=== PATIENT | female | born 1980 | race Caucasian/White ===

== ENCOUNTER 2019-01-20 14:37 | Inpatient (IN) | payer OTHER ==
[~2019-01-20] VITALS: Ht 165.1 cm; Wt 103.0 kg
[2019-01-20] MEDS ORDERED: morphine 4 MG/ML VIAL IV STA (15:06)
[2019-01-20] MEDS ORDERED: SOD CHLORIDE 0.9% 1,000 ML IV STA (15:06)
[2019-01-20] MEDS ORDERED: ONDANSETRON 4 MG INJ IV STA (15:06)
[2019-01-20] MEDS ORDERED: LIDOCAINE 1% (MPF) 5 ML VIAL SC ONE (16:30)
[2019-01-20] MEDS ORDERED: HYDROmorphONE 2 MG/ML SYG IV STA (17:10)
[2019-01-20] MEDS ORDERED: DIPHENHYDRAMINE 50 MG INJ IV ONE (17:30)
[2019-01-20] MEDS ORDERED: METHYLPREDNISOLONE 125 MG INJ IV ONE (18:00)
[2019-01-20] MEDS ORDERED: ONDANSETRON 4 MG INJ IV PRN ×2 (18:30→19:00)
[2019-01-20] MEDS ORDERED: ACETAMINOPHEN 325 MG TAB PO PRN ×2 (18:30→19:00)
--- NOTE | 2019-01-20 18:32 | ERD ---
ER Documentation Chief Complaint Chief Complaint AP WITH HX OF ULCERATIVE COLITIS & REPORTS OF BLOOD IN STOOL TODAY HPI 38-year-old female with a history of ulcerative colitis status post colostomies in the past and colostomy takedown presenting with severe abdominal pain, 10 out of 10, pressure-like and cramping, constant, nonradiating. She has had associated diarrhea for 1 week which is now bloody. 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 She denies any fevers or chills. No nausea or vomiting. No dysuria or hematuria. She is on mesalamine at home ROS All systems reviewed and are negative except as per history of present illness. Allergies Allergies: Coded Allergies: No Known Allergy (Unverified , 01/20/19) PMhx/Soc History of Surgery: Yes (COLOSTOMY X2, , TUBAL LIGATION, LAP MURRAY) Hx Miscellaneous Medical Probl: Yes (BLEEDING ULCER, ULCERATIVE COLITIS) Hx Alcohol Use: Yes Hx Substance Use: Yes Hx Tobacco Use: No Smoking Status: Never smoker FmHx Family History: No diabetes Physical Exam Vitals Vital Signs Date Temp Pulse Resp B/P (MAP) Pulse Ox O2 O2 Flow FiO2 Time Delivery Rate 01/20/19 73 18 115/64 99 Room Air 18:00 (81) 01/20/19 98.3 98 18 160/71 100 14:42 (100) Physical Exam Const: No acute distress Head: Atraumatic Eyes: Normal Conjunctiva ENT: Normal External Ears, Nose and Mouth. Neck: Full range of motion. No meningismus. Resp: Clear to auscultation bilaterally Cardio: Regular rate and rhythm, no murmurs Abd: Soft, moderately tender in the left upper and lower abdomen with no rebound or guarding. Non distended. Hyperactive bowel sounds Skin: No pallor. No petechiae or rashes Back: No midline or flank tenderness Ext: No cyanosis, or edema Neur: Awake and alert Psych: Normal Mood and Affect Result Diagram: 01/20/19 1634 01/20/19 1634 Results 24 hrs Laboratory Tests Test 01/20/19 15:06 01/20/19 16:34 Urine Color YELLOW Urine Clarity CLOUDY Urine pH 6.0 Urine Specific [place] 1.012 Urine Ketones NEGATIVE mg/dL Urine Nitrite NEGATIVE mg/dL Urine Bilirubin NEGATIVE mg/dL Urine Urobilinogen NEGATIVE mg/dL Urine Leukocyte Esterase 1+ Kirk/ul Urine Microscopic RBC 2 /HPF Urine Microscopic WBC 2 /HPF Urine Squamous Epithelial Cells MANY /HPF Urine Bacteria FEW /HPF Urine Mucus FEW /HPF Urine Hemoglobin 2+ mg/dL Urine Glucose NEGATIVE mg/dL Urine Total Protein NEGATIVE mg/dl White Blood Count 7.2 10^3/ul Red Blood Count 4.47 10^6/ul Hemoglobin 11.8 g/dl Hematocrit 38.3 % Mean Corpuscular Volume 85.7 fl Mean Corpuscular Hemoglobin 26.4 pg Mean Corpuscular Hemoglobin Concent 30.8 g/dl Red Cell Distribution Width 15.6 % Platelet Count 262 10^3/UL Mean Platelet Volume 10.5 fl Immature Granulocytes % 0.600 % Neutrophils % 67.5 % Lymphocytes % 24.6 % Monocytes % 5.6 % Eosinophils % 1.4 % Basophils % 0.3 % Nucleated Red Blood Cells % 0.0 /100WBC Immature Granulocytes # 0.040 10^3/ul Neutrophils # 4.8 10^3/ul Lymphocytes # 1.8 10^3/ul Monocytes # 0.4 10^3/ul Eosinophils # 0.1 10^3/ul Basophils # 0.0 10^3/ul Nucleated Red Blood Cells # 0.0 10^3/ul Sodium Level 140 mmol/L Potassium Level 3.9 mmol/L Chloride Level 106 mmol/L Carbon Dioxide Level 27 mmol/L Anion Gap 7 Blood Urea Nitrogen 8 mg/dl Creatinine 0.69 mg/dl Est Glomerular Filtrat Rate mL/min > 60 mL/min Glucose Level 88 mg/dl Calcium Level 9.5 mg/dl Total Bilirubin 0.2 mg/dl Direct Bilirubin 0.00 mg/dl Indirect Bilirubin 0.2 mg/dl Aspartate Amino Transf (AST/SGOT) 42 IU/L Alanine Aminotransferase (ALT/SGPT) 85 IU/L Alkaline Phosphatase 156 IU/L Total Protein 7.3 g/dl Albumin 4.2 g/dl Globulin 3.10 g/dl Albumin/Globulin Ratio 1.35 Lipase 71 U/L Current Medications Medications Dose Sig/Ajit Start Time Status Last (Trade) Ordered Route PRN Stop Time Admin Dose Reason Admin Sodium 1,000 ml @ Q1H STAT 01/20/19 DC 01/20/19 Chloride 1,000 mls/hr IV 15:06 16:39 01/20/19 16:05 Morphine 4 mg ONCE STAT 01/20/19 DC 01/20/19 Sulfate IV 15:06 16:39 (morphine) 01/20/19 15:08 Ondansetron 4 mg ONCE STAT 01/20/19 DC 01/20/19 HCl (Zofran IV 15:06 16:39 Inj) 01/20/19 15:08 Lidocaine 5 ml ONCE ONCE 01/20/19 DC (Xylocaine SC 16:30 1% (Mpf)) 01/20/19 16:32 1 mg ONCE STAT 01/20/19 DC 01/20/19 Hydromorphone IV 17:10 17:23 HCl 01/20/19 17:12 (Dilaudid) 25 mg ONCE ONCE 01/20/19 DC 01/20/19 Diphenhydrami IV 17:30 17:23 ne HCl 01/20/19 17:31 (Benadryl) 125 mg ONCE ONCE 01/20/19 DC 01/20/19 Methylprednis IV 18:00 18:10 olone Sodium 01/20/19 18:01 Succinate (Solu-Medrol) Procedures/MDM EMERGENT LABS AND DIAGNOSTIC STUDIES: Lab Results above were reviewed and interpreted by me. CBC: mild anemia, no evidence of infection CMP: No evidence of electrolyte abnormality, renal failure, hypoglycemia, liver failure, or biliary obstruction Lipase: no evidence of pancreatitis UA: no evidence of infection Radiology Results as interpreted by Radiology below were reviewed by Genevieve Palafox MD: CT abdomen and pelvis pending Initial Nursing notes reviewed. Previous Medical Records requested via the Electronic Health Record. EMERGENCY DEPARTMENT COURSE / MEDICAL DECISION MAKING: Patient is presenting with abdominal pain with rectal bleeding, likely UC flare. She is hemodynamically stable and afebrile. I have a low suspicion for surgical abdomen, however I have no previous CTs in our records. I cannot rule out acute diverticulitis. CT abdomen and pelvis has been ordered and is pending. Patient given steroids and pain medications with some relief. She will be admitted for observation and GI consultation. No evidence of severe anemia at this time and she does not require transfusion. Accepting Care Team: Current data and ongoing care discussed. Time: Time of admission Primary Provider: Dr. Dempsey Consulting: None Outstanding Data: CT abdomen and pelvis Departure Diagnosis: Primary Impression: Abdominal pain Abdominal location: generalized Qualified Codes: R10.84 - Generalized abdominal pain Additional Impressions: History of ulcerative colitis Bloody diarrhea Condition: LUZ ELENA Rizzo MD Jan 20, 2019 18:32
[2019-01-20] MEDS ORDERED: DEXTROSE 5%-0.45% NACL 1,000 ML IV SCH (18:42)
[2019-01-20] MEDS ORDERED: HYDROCODONE/APAP (5/325) TAB PO PRN (19:00)
[2019-01-20] MEDS ORDERED: NACL 0.9% 3 ML SYG IV SCH (19:00)
--- NOTE | 2019-01-20 19:04 | HP ---
Date/Time of Note Date/Time of Note DATE: 01/20/19 TIME: 19:04 Assessment/Plan VTE Prophylaxis SCD applied (from Nsg): Yes Pharmacological prophylaxis: NA/contraindicated Pharm contraindication: low risk/ambulating Lines/Catheters IV Catheter Type (from Nrsg): Saline Lock Assessment/Plan Assessment/Plan 1. Acute ulcerative colitis flare - patient with bright red blood per rectum with every BM - GI consultation placed for recommendations - Will start on IV Solumedrol, Topical steroids, and Mesalamine TID - Clear diet - hgb stable and will monitor. Transfuse if <7.5 2. Acute proctitis - seen on CT scan - will start empiric antibiotics 3. Nicotine abuse - counseled regarding cessation - will give nicotine patch 4. Acute blood loss anemia - mild - monitor 5. Diet - Clear diet 6. Disposition - Admit to med surg for treatment of acute UC flare Result Diagram: 01/20/19 1634 01/20/19 1634 Results 24hrs Laboratory Tests Test 01/20/19 15:06 01/20/19 16:33 01/20/19 16:34 Urine Color YELLOW Urine Clarity CLOUDY A Urine pH 6.0 Urine Specific [place] 1.012 Urine Ketones NEGATIVE Urine Nitrite NEGATIVE Urine Bilirubin NEGATIVE Urine Urobilinogen NEGATIVE Urine Leukocyte Esterase 1+ H Urine Microscopic RBC 2 Urine Microscopic WBC 2 Urine Squamous Epithelial Cells MANY A Urine Bacteria FEW A Urine Mucus FEW A Urine Hemoglobin 2+ H Urine Glucose NEGATIVE Urine Total Protein NEGATIVE Serum HCG, Qualitative NEGATIVE White Blood Count 7.2 Red Blood Count 4.47 Hemoglobin 11.8 L Hematocrit 38.3 Mean Corpuscular Volume 85.7 Mean Corpuscular Hemoglobin 26.4 L Mean Corpuscular Hemoglobin Concent 30.8 L Red Cell Distribution Width 15.6 H Platelet Count 262 Mean Platelet Volume 10.5 H Immature Granulocytes % 0.600 H Neutrophils % 67.5 Lymphocytes % 24.6 Monocytes % 5.6 Eosinophils % 1.4 Basophils % 0.3 Nucleated Red Blood Cells % 0.0 Immature Granulocytes # 0.040 H Neutrophils # 4.8 Lymphocytes # 1.8 Monocytes # 0.4 Eosinophils # 0.1 Basophils # 0.0 Nucleated Red Blood Cells # 0.0 Sodium Level 140 Potassium Level 3.9 Chloride Level 106 Carbon Dioxide Level 27 Anion Gap 7 Blood Urea Nitrogen 8 Creatinine 0.69 Est Glomerular Filtrat Rate mL/min > 60 Glucose Level 88 Calcium Level 9.5 Total Bilirubin 0.2 Direct Bilirubin 0.00 Indirect Bilirubin 0.2 Aspartate Amino Transf (AST/SGOT) 42 Alanine Aminotransferase (ALT/SGPT) 85 H Alkaline Phosphatase 156 H Total Protein 7.3 Albumin 4.2 Globulin 3.10 Albumin/Globulin Ratio 1.35 Lipase 71 HPI/ROS Admit Date/Time Admit Date/Time 01/20/19 1845 Hx of Present Illness 38 yo F with PMH Ulcerative colitis presented to ED due to UC flare. Patient states 1 weeks ago she started with diarrhea after PO intake, which is common when she has a flare. However, this am she started experiencing bloody diarrhea with diffuse abdominal pain. She admits to her last flare being 6 months ago but without any rectal bleeding. Patient is from out of town and scheduled to see a GI specialist in [place] in the next coming months. Patient denies chest pain, shortness of breath, dizziness, nausea, vomiting, urinary issues, or LOC. ROS All 12 systems reviewed and pertinent positives as per HPI. All others negative. Constitutional: No chills, No fatigue, No nausea Eyes: No discharge ENT: No congestion Respiratory: No cough, No shortness of breath, No sputum Cardiovascular: No chest pain, No lightheadedness, No palpitations Gastrointestinal: pain, blood, diarrhea; No constipation, No nausea, No vomiting Genitourinary: no complaints Musculoskeletal: no complaints Skin: no complaints Neurologic: No dizziness, No focal-weakness, No syncope Endocrine: no complaints Lymphatic: no complaints Psychological: nl mood/affect Immunologic: no complaints PMH/Family/Social Past Medical History Medical History: other (ulcerative colitis) Medications Current Medications Ondansetron HCl (Zofran Inj) 4 mg BRIDGE ORDER PRN IV NAUSEA/VOMITING; Start 01/20/19 at 18:30; Stop 01/21/19 at 18:29 Acetaminophen (Tylenol Tab) 650 mg ER BRIDGE PRN PO .MILD PAIN 1-3 OR TEMP; Start 01/20/19 at 18:30; Stop 01/21/19 at 18:29 Dextrose/Sodium Chloride 1,000 ml @ 100 mls/hr Q10H IV ; Start 01/20/19 at 18:42 IV Flush (NS 3 ml) 3 ml PER PROTOCOL IV ; Start 01/20/19 at 19:00 Ondansetron HCl (Zofran Inj) 4 mg Q6H PRN IV NAUSEA/VOMITING; Start 01/20/19 at 19:00 Acetaminophen (Tylenol Tab) 650 mg Q6H PRN PO .PAIN 1-3 OR TEMP; Start 01/20/19 at 19:00 Acetaminophen/ Hydrocodone Bitart ([place] (5/325)) 1 tab Q6H PRN PO .MOD PAIN 4- 6; Start 01/20/19 at 19:00 Hydromorphone HCl (Dilaudid) 1.5 mg Q3H PRN IV .SEVERE PAIN 7-10; Start 01/20/19 at 19:00 Pantoprazole (Protonix Iv) 40 mg DAILY@06 IV ; Start 01/21/19 at 06:00 Methylprednisolone Sodium Succinate (Solu-Medrol) 20 mg Q8 IV ; Start 01/20/19 at 22:00 Hydrocortisone/ Pramoxine (Proctofoam-Hc) 1 applic BID ND ; Start 01/20/19 at 21:00; Status UNV Mesalamine (Delzicol Dr) 800 mg TID PO ; Start 01/20/19 at 21:00; Status UNV Coded Allergies: No Known Allergy (Unverified , 01/20/19) Past Surgical History Past Surgical Hx: cholecystectomy, other (colostomy, reversal ) Family History Significant Family History: no pertinent family hx Social History Alcohol Use: none Smoking Status: Never smoker Drug Use: none Exam/Review of Systems Vital Signs Vitals Vital Signs Date Temp Pulse Resp B/P (MAP) Pulse Ox O2 O2 Flow FiO2 Time Delivery Rate 01/20/19 73 18 115/64 99 Room Air 18:00 (81) 01/20/19 98.3 14:42 Exam Exam General: Patient is a pleasant female, distress secondary to pain. HEENT: Atraumatic, normocephalic. The pupils are equal, round and reactive. Extraocular motor are intact Neck: Supple with full range of motion. No rigidity or meningismus Chest: Nontender Lungs: Clear to auscultation bilaterally no crackles rales or wheezing Heart: Normal S1-S2, Regular rate and rhythm. no murmurs Abdomen: Soft ,diffusely tender, nondistended, bowel sounds are present. No guarding no rebound tenderness , No masses or organomegaly. No costovertebral temporal angle mass Extremities: Normal to inspection, no edema no cyanosis Neurologic: Normal mental status, speech normal, cranial nerves II through XII are intact, motor and sensory are intact, Additional Comments Home medications reviewed PROCEDURE: CT Abdomen and Pelvis without contrast CLINICAL INDICATION: Left-sided abdominal pain, rectal bleeding TECHNIQUE: Transaxial computed tomographic images of the abdomen and pelvis were obtained without intravenous contrast. Coronal and sagittal reformatted images were provided. DICOM images are available. Radiation dose: CTDIvol (mGy) = 22.3; total DLP (mGy.cm) = 1438.33. One or more of the following dose reduction techniques were used: - Automated exposure control. - Adjustment of the mA and/or kV according to patient size. - Use of iterative reconstruction technique. COMPARISON: None. FINDINGS: The visualized lung bases are clear. There is no pleural effusion. Gallbladder is surgically absent. Common bile duct is mildly dilated measuring 8 mm in diameter. Liver, spleen, pancreas, adrenal glands, and kidneys have normal noncontrast appearance. There is no calcific renal calculus or hydronephrosis. There is moderate circumferential wall thickening of the mid and lower rectum. There is no evidence of intestinal obstruction. Surgical clips are seen along the fundus and body of the stomach. The appendix is normal. Surgical suture material is seen in the left lower quadrant of the abdomen adjacent to small bowel and colonic loops. There is no abdominal aortic aneurysm. There is no free intraperitoneal air or fluid. Urinary bladder is not fully distended. Uterus is within normal limits. There is no suspicious mesenteric or retroperitoneal lymphadenopathy. There is a small fat-containing umbilical hernia. There is a subcutaneous soft tissue nodul e measuring 22 x 10 mm in the right lower quadrant anterior abdominal wall. The osseous structures of the abdomen and pelvis are intact. IMPRESSION: 1. Moderate circumferential mid and lower rectal wall thickening, suggestive of proctitis. Consider follow-up proctoscopy after the course of treatment and when clinically appropriate. 2. Mild extrahepatic biliary ductal dilatation, could be seen in the setting of prior cholecystectomy. Recommend correlation with laboratory data. If clinically warranted, follow-up MRI/MRCP could be obtained. 3. Subcutaneous nodule in the right lower quadrant anterior abdominal wall, indeterminate. RPTAT:HAJM Katharine Holcomb, Physician Date Time Electronically viewed and signed by Katharine Holcomb, Physician on 01/20/2019 19:00 SANGEETA VALDES MD Jan 20, 2019 19:04
[2019-01-20] MEDS: HYDROmorphONE 2 MG/ML SYG IV PRN ×2 (19:39→22:40)
[2019-01-20] MEDS ORDERED: MESALAMINE (EC) 400 MG CAP PO SCH (21:00)
[2019-01-20] MEDS ORDERED: NICOTINE (21 MG/24 HR) PATCH TRANSDERM SCH (21:00)
[2019-01-20] MEDS ORDERED: PRAMOXINE/HC 10 GM RECT FOAM PR SCH (21:00)
[2019-01-20 21:30] VITALS: BP 136/81; PULSE 70; RESP 16
[2019-01-20] MEDS ORDERED: GABA-528 PO (21:40)
[2019-01-20] MEDS ORDERED: ZOLP10TA5 PO (21:40)
[2019-01-20] MEDS ORDERED: BIOT5000 PO (21:40)
[2019-01-20] MEDS ORDERED: MESA1.2T2 PO (21:40)
[2019-01-20] MEDS ORDERED: PREN-46 PO (21:40)
[2019-01-20] MEDS ORDERED: CARI350T29 PO (21:40)
[2019-01-20] MEDS ORDERED: SERT-165 PO (21:40)
[2019-01-20] MEDS ORDERED: CLON1TAB13 PO (21:40)
[2019-01-20] MEDS ORDERED: PIPER-TAZO 3.375 GM IV (PMX) 100 ML IVPB SCH (22:00)
[2019-01-20] MEDS ORDERED: METHYLPREDNISOLONE 40 MG INJ IV SCH (22:00)
[2019-01-20] MEDS ORDERED: ZOLPIDEM 5 MG TAB PO ONE (22:30)
[2019-01-20 23:03] VITALS: Ht 165.1 cm; Wt 103.0 kg
[2019-01-21 01:37] VITALS: BP 129/65; PULSE 64; RESP 16
[2019-01-21] MEDS: HYDROmorphONE 2 MG/ML SYG IV PRN (01:40)
[2019-01-21] MEDS ORDERED: PANTOPRAZOLE 40 MG INJ IV SCH (06:00)
--- NOTE | 2019-01-21 08:30 | DS ---
Date/Time of Note Date/Time of Note DATE: 01/21/19 TIME: 08:30 Discharge Summary Admission/Discharge Info Admit Date/Time Jan 20, 2019 at 18:19 Discharge Date/Time Jan 21, 2019 at 02:43 Discharge Diagnosis 1. Acute ulcerative colitis flare 2. Acute proctitis 3. Nicotine abuse 4. Acute blood loss anemia Patient Condition: Stable Consults GI Procedures PROCEDURE: CT Abdomen and Pelvis without contrast CLINICAL INDICATION: Left-sided abdominal pain, rectal bleeding TECHNIQUE: Transaxial computed tomographic images of the abdomen and pelvis were obtained without intravenous contrast. Coronal and sagittal reformatted images were provided. DICOM images are available. Radiation dose: CTDIvol (mGy) = 22.3; total DLP (mGy.cm) = 1438.33. One or more of the following dose reduction techniques were used: - Automated exposure control. - Adjustment of the mA and/or kV according to patient size. - Use of iterative reconstruction technique. COMPARISON: None. FINDINGS: The visualized lung bases are clear. There is no pleural effusion. Gallbladder is surgically absent. Common bile duct is mildly dilated measuring 8 mm in diameter. Liver, spleen, pancreas, adrenal glands, and kidneys have normal noncontrast appearance. There is no calcific renal calculus or hydronephrosis. There is moderate circumferential wall thickening of the mid and lower rectum. There is no evidence of intestinal obstruction. Surgical clips are seen along the fundus and body of the stomach. The appendix is normal. Surgical suture material is seen in the left lower quadrant of the abdomen adjacent to small bowel and colonic loops. There is no abdominal aortic aneurysm. There is no free intraperitoneal air or fluid. Urinary bladder is not fully distended. Uterus is within normal limits. There is no suspicious mesenteric or retroperitoneal lymphadenopathy. There is a small fat-containing umbilical hernia. There is a subcutaneous soft tissue nodule measuring 22 x 10 mm in the right lower quadrant anterior abdominal wall. The osseous structures of the abdomen and pelvis are intact. IMPRESSION: 1. Moderate circumferential mid and lower rectal wall thickening, suggestive of proctitis. Consider follow-up proctoscopy after the course of treatment and when clinically appropriate. 2. Mild extrahepatic biliary ductal dilatation, could be seen in the setting of prior cholecystectomy. Recommend correlation with laboratory data. If clinically warranted, follow-up MRI/MRCP could be obtained. 3. Subcutaneous nodule in the right lower quadrant anterior abdominal wall, indeterminate. Hx of Present Illness 38 yo F with PMH Ulcerative colitis presented to ED due to UC flare. Patient states 1 weeks ago she started with diarrhea after PO intake, which is common when she has a flare. However, this am she started experiencing bloody diarrhea with diffuse abdominal pain. She admits to her last flare being 6 months ago but without any rectal bleeding. Patient is from out of town and scheduled to see a GI specialist in [place] in the next coming months. Patient denies chest pain, shortness of breath, dizziness, nausea, vomiting, urinary issues, or LOC. Hospital Course Patient was admitted for treatment of ulcerative colitis flare and started on IV solumedrol, topical steroids, and mesalamine. Patient had CT scan of abdomen performed which showed proctitis and antibiotics were started as well. Patient requested to leave AMA at 2am due to son breaking his arm. After discussion with nurse and oncall staff, patient left AGAINST MEDICAL ADVICE. Home Meds Reported Medications Biotin (Biotin) 5,000 Mcg Tab.rapdis, 5000 MCG PO DAILY 01/20/19 Vit #108/Iron/Fa ( ONE TABLET) 1 Each Tablet, 1 EACH PO DAILY, TAB 01/20/19 Zolpidem Tartrate* (Zolpidem Tartrate*) 10 Mg Tablet, 10 MG PO QHS for 30 Days, #30 01/20/19 Carisoprodol* (Carisoprodol*) 350 Mg Tablet, 350 MG PO BID for 30 Days, #60 01/20/19 Clonazepam* (Clonazepam*) 1 Mg Tablet, 1 MG PO TID for 30 Days, #90 01/20/19 Mesalamine (Lialda) 1.2 Gm Tablet.dr, 1.2 MG PO DAILY for 30 Days, #15 01/20/19 Sertraline Hcl* (Sertraline Hcl*) 100 Mg Tablet, 100 MG PO DAILY for 30 Days, #30 01/20/19 Gabapentin* (Gabapentin*) 800 Mg Tablet, 800 MG PO TID for 30 Days, #90 01/20/19 Primary Care Provider Not On Staff Doctor Time spent on discharge: < 30 minutes Pending Labs Laboratory Tests Test 01/20/19 15:06 01/20/19 16:33 01/20/19 16:34 Urine Color YELLOW (YELLOW) Urine Clarity CLOUDY (CLEAR) Urine pH 6.0 (5.0-9.0) Urine Specific 1.012 (1.003-1.030) [place] Urine Ketones NEGATIVE mg/dL (NEGATIVE) Urine Nitrite NEGATIVE mg/dL (NEGATIVE) Urine Bilirubin NEGATIVE mg/dL (NEGATIVE) Urine Urobilinogen NEGATIVE mg/dL (NEGATIVE) Urine Leukocyte 1+ Esterase Kirk/ul (NEGATIVE) Urine Microscopic 2 /HPF (0-5) RBC Urine Microscopic 2 /HPF (0-5) WBC Urine Squamous MANY /HPF (FEW) Epithelial Cells Urine Bacteria FEW /HPF (NONE SEEN) Urine Mucus FEW /HPF (NONE SEEN) Urine Hemoglobin 2+ mg/dL (NEGATIVE) Urine Glucose NEGATIVE mg/dL (NEGATIVE) Urine Total NEGATIVE Protein mg/dl (NEGATIVE) Serum HCG, NEGATIVE (NEGATIVE Qualitative ) White Blood Count 7.2 10^3/ul (4.8-10.8) Red Blood Count 4.47 10^6/ul (4.20-5.40 ) Hemoglobin 11.8 g/dl (12.0-16.0) Hematocrit 38.3 % (37.0-47.0) Mean Corpuscular 85.7 Volume fl (82.0-101.0) Mean Corpuscular 26.4 Hemoglobin pg (29.0-33.0) Mean Corpuscular 30.8 Hemoglobin Concent g/dl (32.0-37.0) Red Cell 15.6 % (11.5-14.5) Distribution Width Platelet Count 262 10^3/UL (140-415) Mean Platelet 10.5 fl (7.4-10.4) Volume Immature 0.600 Granulocytes % % (0.001-0.429) Neutrophils % 67.5 % (39.0-77.0) Lymphocytes % 24.6 % (15.0-51.0) Monocytes % 5.6 % (0.0-11.0) Eosinophils % 1.4 % (0.0-7.0) Basophils % 0.3 % (0.0-2.0) Nucleated Red Blood 0.0 Cells % /100WBC (0.0-0.0) Immature 0.040 Granulocytes # 10^3/ul (0.0-0.031 ) Neutrophils # 4.8 10^3/ul (1.6-7.5) Lymphocytes # 1.8 10^3/ul (0.8-2.9) Monocytes # 0.4 10^3/ul (0.3-0.9) Eosinophils # 0.1 10^3/ul (0.0-0.5) Basophils # 0.0 10^3/ul (0.0-0.1) Nucleated Red Blood 0.0 Cells # 10^3/ul (0.0-0.0) Sodium Level 140 mmol/L (135-144) Potassium Level 3.9 mmol/L (3.5-5.1) Chloride Level 106 mmol/L (97-110) Carbon Dioxide 27 mmol/L (21-31) Level Anion Gap 7 (5-13) Blood Urea Nitrogen 8 mg/dl (7-20) Creatinine 0.69 mg/dl (0.44-1.00) Est Glomerular > 60 mL/min (>60) Filtrat Rate mL/min Glucose Level 88 mg/dl (70-220) Calcium Level 9.5 mg/dl (8.4-10.2) Total Bilirubin 0.2 mg/dl (0.2-1.3) Direct Bilirubin 0.00 mg/dl (0.00-0.20) Indirect Bilirubin 0.2 mg/dl (0-1.1) Aspartate Amino 42 IU/L (15-46) Transf (AST/SGOT) Alanine 85 IU/L (13-69) Aminotransferase (A LT/SGPT) Alkaline 156 IU/L (42-121) Phosphatase Total Protein 7.3 g/dl (6.1-8.1) Albumin 4.2 g/dl (3.3-4.9) Globulin 3.10 g/dl (1.3-3.2) Albumin/Globulin 1.35 Ratio Lipase 71 U/L (23-300) SANGEETA VALDES MD Jan 21, 2019 08:30
== END 2019-01-21 02:43 | disposition left against medical advice (07) | DRG 386 ==
LOC: E/R 14:37 → 2NE 18:19
PROVIDERS: ADMIT Internal Medicine; ATTEND Internal Medicine
DX: K51.90 Ulcerative colitis, unspecified, without complications (principal); D62 Acute posthemorrhagic anemia; K51.20 Ulcerative (chronic) proctitis without complications; F17.200 Nicotine dependence, unspecified, uncomplicated
CPT/HCPCS: 36415; 74176; 80053; 81001; 83690; 84703; 85025; 86850; 86900; 86901; 96374; 96375; J1170; J1200; J2270; J2405; J2543; J2920; J2930; J7030; J7042

== ENCOUNTER 2019-02-06 13:33 | Emergency (ER) | payer OTHER ==
[~2019-02-06] VITALS: Ht 172.7 cm; Wt 107.2 kg
[~2019-02-06 13:33] MED LIST: BIOT5000 PO; CARI350T29 PO; CLON1TAB13 PO; GABA-528 PO; MESA1.2T2 PO; PREN-46 PO; SERT-165 PO; ZOLP10TA5 PO
[2019-02-06 13:37] VITALS: Ht 172.7 cm; Wt 107.2 kg
[2019-02-06] MEDS ORDERED: SOD CHLORIDE 0.9% 1,000 ML IV STA (15:05)
[2019-02-06] MEDS ORDERED: ONDANSETRON 4 MG INJ IV STA ×3 (15:05→18:04)
[2019-02-06] MEDS ORDERED: HYDROmorphONE 1 MG/ML SYG IV STA ×2 (15:05→17:15)
--- NOTE | 2019-02-06 15:09 | ERD ---
ER Documentation Chief Complaint Chief Complaint abd pain x 6 days; no appetite; hx of ulcerative colitis HPI This is a 38-year-old female with a history of ulcerative colitis complaining of a 5-day exacerbation pain is located in the mid left abdomen that is consistent with prior UC flareups also pain is in the rectum area described as a dull ache sometimes sharp. She is having decrease in appetite. No nausea vomiting, but she is having 3 episodes of some bloody diarrhea which is also consistent with prior UC. No fever no back pain ROS All systems reviewed and are negative except as per history of present illness. Medications Home Meds Reported Medications Mesalamine (Mesalamine) 1.2 Gm Tablet.dr, 2.4 GM PO DAILY 02/06/19 Biotin (Biotin) 5,000 Mcg Tab.rapdis, 5000 MCG PO DAILY 01/20/19 Vit #108/Iron/Fa ( ONE TABLET) 1 Each Tablet, 1 EACH PO DAILY, TAB 01/20/19 Zolpidem Tartrate* (Zolpidem Tartrate*) 10 Mg Tablet, 10 MG PO QHS for 30 Days, #30 01/20/19 Carisoprodol* (Carisoprodol*) 350 Mg Tablet, 350 MG PO BID for 30 Days, #60 01/20/19 Clonazepam* (Clonazepam*) 1 Mg Tablet, 1 MG PO TID for 30 Days, #90 01/20/19 Sertraline Hcl* (Sertraline Hcl*) 100 Mg Tablet, 100 MG PO DAILY for 30 Days, #30 01/20/19 Gabapentin* (Gabapentin*) 800 Mg Tablet, 800 MG PO TID for 30 Days, #90 01/20/19 Allergies Allergies: Coded Allergies: morphine (Verified Allergy, Severe, ITCHING , 02/06/19) PER PT "I'M ALLERGIC TO MORPHINE I GET ITCHY BUT CAN I GET BENADRYL TO COUNTER ACT THE ITCHING" IF I GET BENADRYL THEN I CAN HAVE IT" PMhx/Soc History of Surgery: Yes (hernia repair x2, colostomy bag, lap band) Anesthesia Reaction: No Hx Neurological Disorder: No Hx Respiratory Disorders: No Hx Cardiac Disorders: No Hx Psychiatric Problems: No Hx Miscellaneous Medical Probl: No Hx Alcohol Use: No Hx Substance Use: No Hx Tobacco Use: No FmHx Family History: No coronary disease Physical Exam Vitals Vital Signs Date Temp Pulse Resp B/P (MAP) Pulse Ox O2 O2 Flow FiO2 Time Delivery Rate 02/06/19 87 136/71 17:30 (92) 02/06/19 97.5 100 20 132/59 100 13:37 (83) Physical Exam Const: Well-developed, well-nourished Head: Atraumatic, normocephalic Eyes: Normal Conjunctiva, PERRLA, EOMI, normal sclera, no nystagmus ENT: Normal External Ears, Nose and Mouth, moist mucus membranes. Neck: Full range of motion. No meningismus, no lymphadenopathy. Resp: Clear to auscultation bilaterally, no wheezing, rhonchi, rales Cardio: Regular rate and rhythm, no murmurs, S1 S2 present Abd: Soft, moderate diffuse mid and left abdominal pain, non distended. Normal bowel sounds, no guarding or rebound, no pulsitile abdominal masses or bruits Skin: No petechiae or rashes, no ecchymosis , no maculopapular rash Back: No midline or flank tenderness Ext: No cyanosis, or edema, FROM x 4, normal inspection, neurovascularly intact x 4 Neur: Awake and alert, STR 5/5 x 4, sensation intact x 4, no focal findings, cerebellum intact Psych: Normal Mood and Affect Result Diagram: 02/06/19 1520 02/06/19 1520 Results 24 hrs Laboratory Tests Test 02/06/19 15:20 White Blood Count 4.1 10^3/ul Red Blood Count 3.99 10^6/ul Hemoglobin 9.9 g/dl Hematocrit 33.1 % Mean Corpuscular Volume 83.0 fl Mean Corpuscular Hemoglobin 24.8 pg Mean Corpuscular Hemoglobin Concent 29.9 g/dl Red Cell Distribution Width 15.5 % Platelet Count 242 10^3/UL Mean Platelet Volume 10.8 fl Immature Granulocytes % 0.200 % Neutrophils % 48.4 % Lymphocytes % 36.7 % Monocytes % 9.3 % Eosinophils % 4.4 % Basophils % 1.0 % Nucleated Red Blood Cells % 0.0 /100WBC Immature Granulocytes # 0.010 10^3/ul Neutrophils # 2.0 10^3/ul Lymphocytes # 1.5 10^3/ul Monocytes # 0.4 10^3/ul Eosinophils # 0.2 10^3/ul Basophils # 0.0 10^3/ul Nucleated Red Blood Cells # 0.0 10^3/ul Sodium Level 142 mmol/L Potassium Level 3.5 mmol/L Chloride Level 105 mmol/L Carbon Dioxide Level 26 mmol/L Anion Gap 11 Blood Urea Nitrogen 7 mg/dl Creatinine 0.61 mg/dl Est Glomerular Filtrat Rate mL/min > 60 mL/min Glucose Level 68 mg/dl Calcium Level 9.0 mg/dl Total Bilirubin 0.2 mg/dl Direct Bilirubin 0.00 mg/dl Indirect Bilirubin 0.2 mg/dl Aspartate Amino Transf (AST/SGOT) 23 IU/L Alanine Aminotransferase (ALT/SGPT) 17 IU/L Alkaline Phosphatase 88 IU/L Total Protein 6.7 g/dl Albumin 4.1 g/dl Globulin 2.60 g/dl Albumin/Globulin Ratio 1.57 Current Medications Medications Dose Sig/Ajit Start Time Status Last (Trade) Ordered Route PRN Stop Time Admin Dose Reason Admin Sodium 1,000 ml @ Q1H STAT 02/06/19 DC 02/06/19 Chloride 1,000 mls/hr IV 15:05 02/06/19 15:30 16:04 1 mg ONCE STAT 02/06/19 DC 02/06/19 Hydromorphone IV 15:05 02/06/19 15:30 HCl 15:08 (Dilaudid) Ondansetron 4 mg ONCE STAT 02/06/19 DC 02/06/19 HCl (Zofran IV 15:05 02/06/19 15:30 Inj) 15:08 50 ml @ ONCE ONCE 02/06/19 DC 02/06/19 Methylprednis 100 mls/hr IV 15:30 02/06/19 15:30 olone Sodium 15:59 Succinate 250 mg/Dextrose IV Flush 10 ml STK-MED 02/06/19 DC (NS 10 ml) ONCE .ROUTE 15:57 02/06/19 15:58 Sodium 100 ml @ ud STK-MED 02/06/19 DC Chloride ONCE .ROUTE 15:57 02/06/19 15:58 Iohexol 150 ml STK-MED 02/06/19 DC (Omnipaque ONCE .ROUTE 15:57 02/06/19 300mg/ ml) 15:58 1 mg ONCE STAT 02/06/19 DC 3/9/19 Hydromorphone IV 17:15 02/06/19 17:29 HCl 17:16 (Dilaudid) Ondansetron 4 mg ONCE STAT 02/06/19 DC 02/06/19 HCl (Zofran IV 17:15 02/06/19 17:29 Inj) 17:16 Procedures/MDM Patient: MYKEL MCDONOUGH : 1980 Age: 38 Sex: F MR #: [id number] DOS: 02/06/19 1505 Ordering MD: OKSANA EVANS DO Location: E/R Room/Bed: PROCEDURE: CT abdomen and pelvis with contrast. CLINICAL INDICATION: Ulcerative colitis. Pain. TECHNIQUE: CT scan of the abdomen and pelvis without oral contrast was performed and is reconstructed at 2.5 mm contiguous axial intervals from the dome of the diaphragm to the inferior pubic rami.. The patient was scanned with intravenous contrast. Sagittal and coronal reformatted images were obtained from the axial source images. The calculated radiation dose measures 1403 mGy centimeters. The CTDI measures 22 mGy. Individualized dose optimization technique was used for the performance of this exam. This included 1. Automated exposure control. 2. Adjustment of the mA and / or kV according to the patient's size. 3. Use of iterative reconstructed technique. COMPARISON: CT abdomen pelvis January 20, 2019 FINDINGS: The lung bases are clear of any infiltrate or nodule. No effusion is seen. The liver is of normal size, contour and attenuation with no mass. The gallbladder has been removed and there is presumed physiologic mild intra and extrahepatic bile duct dilatation to the level of the pancreas. No stones are visualized.. No splenic, adrenal or pancreatic abnormalities present. Kidneys enhance symmetrically and are of normal size and contour. No hydronephrosis, calculus or masses seen. Ureters are of normal course and caliber with no stone. No bladder mass or stone is present. Uterus appears nor mal. No adnexal mass is seen. There is no aneurysm. No adenopathy is present. No bowel mass or obstruction is present. No bowel wall thickening is identified.. There are surgical clips in the wall of the fundus and body of the stomach. The appendix is normal. No phlegmon, ascites or pneumoperitoneum is visualized. The osseous structures are intact. IMPRESSION: No evidence of urolithiasis, obstructive uropathy, diverticulitis or appendicitis. No bowel wall thickening or phlegmon. No abscess. Cholecystectomy with presumed physiologic mild intra and extrahepatic bile duct dilatation. .Jh Vance MD, Date Time Electronically viewed and signed by .Jh Vance MD, on 02/06/2019 17:45 .A/ CC: OKSANA EVANS DO [id number] The patient has no signs of megacolon labs are good will discharge home with prednisone Levaquin Departure Diagnosis: Primary Impression: Exacerbation of ulcerative colitis Digestive disease complication type: without complication Qualified Codes: K51.90 - Ulcerative colitis, unspecified, without complications Condition: Stable OKSANA EVANS DO Feb 06, 2019 15:09
[2019-02-06] MEDS ORDERED: METHYLPRED. NA SUCC 250 MG in DEXTROSE 5% 50 ML IV ONE (15:30)
[2019-02-06] MEDS ORDERED: SOD CHLORIDE 0.9% 100 ML ONE (15:57)
[2019-02-06] MEDS ORDERED: IOHEXOL 300MG/ML 150 ML BTL ONE (15:57)
[2019-02-06] MEDS ORDERED: MESA1.2T3 PO (16:54)
[2019-02-06 17:30] VITALS: BP 136/71; PULSE 87
[2019-02-06] MEDS ORDERED: HYDROmorphONE 0.5 MG/0.5 ML SYG IV STA (18:04)
[2019-02-06] MEDS ORDERED: LEVO750T25 PO (18:09)
[2019-02-06] MEDS ORDERED: PRED20TA PO (18:09)
[2019-02-06] MEDS ORDERED: HYDR-3980 PO (18:09)
== END 2019-02-06 18:47 | disposition home or self-care (01) ==
LOC: E/R 13:33
DX: K51.90 Ulcerative colitis, unspecified, without complications (principal)
CPT/HCPCS: 36415; 74177; 80053; 85025; 96374; 96375; 96376; 99285; J1170; J2405; J2930; J7030; Q9967

== ENCOUNTER 2019-03-14 17:31 | Inpatient (IN) | payer OTHER ==
[~2019-03-14] VITALS: Ht 165.1 cm; Wt 103.2 kg
[~2019-03-14 17:31] MED LIST changes: +HYDR-3980 PO; +LEVO750T25 PO; -MESA1.2T2 PO; +MESA1.2T3 PO; +PRED20TA PO
[2019-03-14] MEDS ORDERED: HYDROmorphONE 1 MG/ML SYG IV STA ×2 (19:51→20:59)
[2019-03-14] MEDS ORDERED: SOD CHLORIDE 0.9% 1,000 ML IV STA (19:51)
[2019-03-14] MEDS ORDERED: ONDANSETRON 4 MG INJ IV STA (19:51)
[2019-03-14] MEDS ORDERED: DEXAMETHASONE 4 MG/ML 1 ML INJ IV ONE (20:00)
[2019-03-14] MEDS ORDERED: DEXAMETHASONE 10 MG/ML 1 ML INJ IV ONE (21:00)
--- NOTE | 2019-03-14 21:12 | ERD ---
ER Documentation Chief Complaint Chief Complaint RECTAL BLEEDING STARTED 3 DAYS AGO, GETTING WORSE; SHORTNESS OF BREATH HPI 39-year-old female history of ulcerative colitis who presents with rectal bleeding. The patient states that she had a recent hospitalization for ulcerative colitis flare. She has completed steroid course. Patient describes 8 out of 10 cramping abdominal discomfort with associated gross bright red blood per rectum. She denies any lightheadedness chest pain. She noted mild shortness of breath. No fevers or chills. ROS All systems reviewed and are negative except as per history of present illness. Medications Home Meds Active Scripts Levofloxacin* (Levaquin*) 750 Mg Tablet, 750 MG PO DAILY for 7 Days, TAB Prov:RENAEOSTHOMSTOLOS A. DO 02/06/19 Prednisone* (Prednisone*) 20 Mg Tab, 60 MG PO DAILY for 5 Days, TAB Prov:LEKKOSTHOMSTOLOS A. DO 02/06/19 Hydrocodone/Acetaminophen ([place] 10-325 Tablet) 1 Each Tablet, 1 TAB PO Q6H PRN for PAIN, #7 TAB Prov:THOM EVANSSTLEWISS A. DO 02/06/19 Reported Medications Mesalamine (Mesalamine) 1.2 Gm Tablet.dr, 2.4 GM PO DAILY 02/06/19 Biotin (Biotin) 5,000 Mcg Tab.rapdis, 5000 MCG PO DAILY 01/20/19 Vit #108/Iron/Fa ( ONE TABLET) 1 Each Tablet, 1 EACH PO DAILY, TAB 01/20/19 Zolpidem Tartrate* (Zolpidem Tartrate*) 10 Mg Tablet, 10 MG PO QHS for 30 Days, #30 01/20/19 Carisoprodol* (Carisoprodol*) 350 Mg Tablet, 350 MG PO BID for 30 Days, #60 01/20/19 Clonazepam* (Clonazepam*) 1 Mg Tablet, 1 MG PO TID for 30 Days, #90 01/20/19 Sertraline Hcl* (Sertraline Hcl*) 100 Mg Tablet, 100 MG PO DAILY for 30 Days, #30 01/20/19 Gabapentin* (Gabapentin*) 800 Mg Tablet, 800 MG PO TID for 30 Days, #90 01/20/19 Allergies Allergies: Coded Allergies: morphine (Verified Allergy, Severe, ITCHING , 02/06/19) PER PT "I'M ALLERGIC TO MORPHINE I GET ITCHY BUT CAN I GET BENADRYL TO COUNTER ACT THE ITCHING" IF I GET BENADRYL THEN I CAN HAVE IT" PMhx/Soc History of Surgery: Yes (hernia repair x2, colostomy bag, lap band) Anesthesia Reaction: No Hx Neurological Disorder: No Hx Respiratory Disorders: No Hx Cardiac Disorders: No Hx Psychiatric Problems: No Hx Miscellaneous Medical Probl: No Hx Alcohol Use: No Hx Substance Use: No Hx Tobacco Use: No Smoking Status: Unknown if ever smoked FmHx Family History: No diabetes Physical Exam Vitals Vital Signs Date Temp Pulse Resp B/P (MAP) Pulse Ox O2 O2 Flow FiO2 Time Delivery Rate 03/14/19 99.2 129 28 131/59 96 17:34 (83) Physical Exam General: Well developed, well nourished, no acute distress Head: Normocephalic, atraumatic. Eyes: Pupils equally reactive, EOM intact ENT: Moist mucous membranes Neck: Supple, no lymphadenopathy Respiratory: Lungs clear bilaterally, no distress Cardiovascular: RRR, no murmurs, rubs, or gallops Abdominal: Soft, mild diffuse abdominal tenderness without rebound or guarding : Deferred MSK: No edema, no unilateral swelling, 5/5 strength Neurologic: Alert and oriented, moving all extremities, normal speech, no focal weakness, no cerebellar signs Skin: No rash Psych: Normal mood Result Diagram: 03/14/19199903/14/192024 Results 24 hrs Laboratory Tests Test 03/14/19 20:00 03/14/19 20:25 03/14/19 20:26 White Blood Count 10.9 10^3/ul Red Blood Count 5.47 10^6/ul Hemoglobin 12.9 g/dl Hematocrit 43.8 % Mean Corpuscular Volume 80.1 fl Mean Corpuscular Hemoglobin 23.6 pg Mean Corpuscular 29.5 g/dl Hemoglobin Concent Red Cell Distribution Width 21.5 % Platelet Count 238 10^3/UL Mean Platelet Volume fl Immature Granulocytes % 0.800 % Neutrophils % 82.2 % Lymphocytes % 8.3 % Monocytes % 8.3 % Eosinophils % 0.0 % Basophils % 0.4 % Nucleated Red Blood Cells % 0.0 /100WBC Immature Granulocytes # 0.090 10^3/ul Neutrophils # 9.0 10^3/ul Lymphocytes # 0.9 10^3/ul Monocytes # 0.9 10^3/ul Eosinophils # 0.0 10^3/ul Basophils # 0.0 10^3/ul Nucleated Red Blood Cells # 0.0 10^3/ul Serum HCG, Qualitative NEGATIVE Sodium Level 140 mmol/L Potassium Level 4.1 mmol/L Chloride Level 107 mmol/L Carbon Dioxide Level 24 mmol/L Anion Gap 9 Blood Urea Nitrogen 17 mg/dl Creatinine 0.63 mg/dl Est Glomerular Filtrat Rate mL/min > 60 mL/min Glucose Level 109 mg/dl Calcium Level 9.0 mg/dl Total Bilirubin 0.8 mg/dl Direct Bilirubin 0.00 mg/dl Indirect Bilirubin 0.8 mg/dl Aspartate Amino Transf (AST/SGOT) 25 IU/L Alanine 15 IU/L Aminotransferase (ALT/SGPT) Alkaline Phosphatase 84 IU/L Total Protein 6.8 g/dl Albumin 3.9 g/dl Globulin 2.90 g/dl Albumin/Globulin Ratio 1.34 Lipase 97 U/L Prothrombin Time 12.5 Sec Prothrombin Time Ratio 1.0 INR International Normalized Ratio 0.92 Activated Partial Thromboplast 24.1 Sec Time Current Medications Medications Dose Sig/Ajit Start Time Status Last (Trade) Ordered Route PRN Stop Time Admin Dose Reason Admin Sodium 1,000 ml @ Q1H STAT 03/14/19 DC 03/14/19 Chloride 1,000 mls/hr IV 19:51 20:03 03/14/19 20:50 1 mg ONCE STAT 03/14/19 DC 03/14/19 Hydromorphone IV 19:51 20:04 HCl 03/14/19 19:52 (Dilaudid) Ondansetron 4 mg ONCE STAT 03/14/19 DC 03/14/19 HCl (Zofran IV 19:51 20:03 Inj) 03/14/19 19:52 1 mg ONCE ONCE 03/14/19 DC 03/14/19 Dexamethasone IV 20:00 20:03 (Decadron) 03/14/19 20:01 9 mg ONCE ONCE 03/14/19 DC 03/14/19 Dexamethasone IV 21:00 20:57 (Decadron) 03/14/19 21:01 1 mg ONCE STAT 03/14/19 DC Hydromorphone IV 20:59 HCl 03/14/19 21:00 (Dilaudid) Ondansetron 4 mg BRIDGE ORDER 03/14/19 HCl (Zofran PRN IV 21:30 Inj) NAUSEA/VOMITI 03/15/19 21:29 NG 650 mg ER BRIDGE 03/14/19 Acetaminophen PRN PO 21:30 (Tylenol .MILD PAIN 03/15/19 21:29 Tab) 1-3 OR TEMP Procedures/MDM LAB INTERPRETATION: I reviewed the laboratory testing and it shows no significant anemia MEDICAL DECISION MAKING: Patient presents with likely ulcerative colitis flare. No signs or symptoms concerning for abscess or perforation. No indication for CT imaging. Patient is having significant rectal bleeding that would warrant inpatient hospitalization, steroids and GI consultation. ER COURSE: * Patient given IV pain medication, IV fluids. Decadron. * Patient has required repeat dosing. She remains hemodynamically stable and will benefit from inpatient hospitalization. CONSULTATION: Admitting team will notify GI DISPOSITION PLAN: Accepting care team and consultations: I discussed the current laboratory data, diagnostic imaging and emergency care provided. Admitting team: Dr. Collado Admitting team indication: Insurance directed Departure Diagnosis: Primary Impression: Rectal hemorrhage Additional Impression: Ulcerative colitis Ulcerative colitis location: unspecified ulcerative colitis location Digestive disease complication type: with rectal bleeding Qualified Codes: K51.911 - Ulcerative colitis, unspecified with rectal bleeding Condition: CAIO Little MD Mar 14, 2019 21:12
[2019-03-14] MEDS ORDERED: ACETAMINOPHEN 325 MG TAB PO PRN (21:30)
[2019-03-14] MEDS ORDERED: ONDANSETRON 4 MG INJ IV PRN ×2 (21:30→23:30)
[2019-03-14 21:35] VITALS: BP 121/56; PULSE 59; RESP 18
[2019-03-14] MEDS ORDERED: SERT100T PO (22:24)
[2019-03-14] MEDS ORDERED: ZOLP10TA PO (22:27)
[2019-03-14] MEDS ORDERED: CLON0.5T PO (22:27)
[2019-03-14 22:33] VITALS: Ht 165.1 cm; Wt 103.2 kg
[2019-03-14] MEDS ORDERED: DEXTROSE 5%-0.45% NACL 1,000 ML IV SCH (23:23)
--- NOTE | 2019-03-14 23:26 | HP ---
Date/Time of Note Date/Time of Note DATE: 03/14/19 TIME: 23:26 Assessment/Plan Lines/Catheters IV Catheter Type (from Nrs): Saline Lock Assessment/Plan Result Diagram: 03/14/19199903/14/192024 Results 24hrs Laboratory Tests Test 03/14/19 20:00 03/14/19 20:25 03/14/19 20:26 03/14/19 21:55 White Blood Count 10.9 #H Red Blood Count 5.47 #H Hemoglobin 12.9 # Hematocrit 43.8 # Mean Corpuscular 80.1 L Volume Mean Corpuscular 23.6 L Hemoglobin Mean Corpuscular 29.5 L Hemoglobin Concent Red Cell 21.5 #H Distribution Width Platelet Count 238 Mean Platelet Volume Immature 0.800 H Granulocytes % Neutrophils % 82.2 H Lymphocytes % 8.3 L Monocytes % 8.3 Eosinophils % 0.0 Basophils % 0.4 Nucleated Red Blood 0.0 Cells % Immature 0.090 H Granulocytes # Neutrophils # 9.0 H Lymphocytes # 0.9 Monocytes # 0.9 Eosinophils # 0.0 Basophils # 0.0 Nucleated Red Blood 0.0 Cells # Serum HCG, NEGATIVE Qualitative Sodium Level 140 Potassium Level 4.1 Chloride Level 107 Carbon Dioxide Level 24 Anion Gap 9 Blood Urea Nitrogen 17 Creatinine 0.63 Est Glomerular > 60 Filtrat Rate mL/min Glucose Level 109 Calcium Level 9.0 Total Bilirubin 0.8 Direct Bilirubin 0.00 Indirect Bilirubin 0.8 Aspartate Amino 25 Transf (AST/SGOT) Alanine 15 Aminotransferase (AL T/SGPT) Alkaline Phosphatase 84 Total Protein 6.8 Albumin 3.9 Globulin 2.90 Albumin/Globulin 1.34 Ratio Lipase 97 Prothrombin Time 12.5 Prothrombin Time 1.0 Ratio INR International 0.92 Normalized Ratio Activated 24.1 Partial Thromboplast Time Bedside Urine pH 6.0 (LAB) Bedside Urine 2+ H Protein (LAB) Bedside Urine Negative Glucose (UA) Bedside Urine Negative Ketones (LAB) Bedside Urine Blood 3+ H Bedside Urine Negative Nitrite (LAB) Bedside Urine 1+ H Leukocyte Esterase (L HPI/ROS Admit Date/Time Admit Date/Time Mar 14, 2019 at 21:07 PMH/Family/Social Past Medical History Medications Current Medications Ondansetron HCl (Zofran Inj) 4 mg BRIDGE ORDER PRN IV NAUSEA/VOMITING; Start 03/14/19 at 21:30; Stop 03/15/19 at 21:29 Acetaminophen (Tylenol Tab) 650 mg ER BRIDGE PRN PO .MILD PAIN 1-3 OR TEMP; Start 03/14/19 at 21:30; Stop 03/15/19 at 21:29 Coded Allergies: morphine (Verified Allergy, Severe, ITCHING , 02/06/19) PER PT "I'M ALLERGIC TO MORPHINE I GET ITCHY BUT CAN I GET BENADRYL TO COUNTER ACT THE ITCHING" IF I GET BENADRYL THEN I CAN HAVE IT" Past Surgical History Past Surgical Hx: cholecystectomy, other Family History Significant Family History: no pertinent family hx Social History Smoking Status: Current every day smoker Exam/Review of Systems Vital Signs Vitals Vital Signs Date Temp Pulse Resp B/P (MAP) Pulse Ox O2 O2 Flow FiO2 Time Delivery Rate 03/14/19 74 18 105/68 98 Room Air 21:38 (80) 03/14/19 97.8 21:35 TERA DRAKE MD Mar 14, 2019 23:26
[2019-03-14] MEDS ORDERED: HYDROCODONE/APAP (10/325) TAB PO PRN (23:30)
[2019-03-14] MEDS ORDERED: HYDROCODONE/APAP (5/325) TAB PO PRN ×2 (23:30)
[2019-03-14] MEDS ORDERED: NACL 0.9% 3 ML SYG IV SCH (23:30)
[2019-03-15] MEDS ORDERED: HYDROmorphONE 0.5 MG/0.5 ML SYG IV STA (01:31)
[2019-03-15] MEDS ORDERED: clonAZEPAM 0.5 MG TAB PO SCH ×2 (01:45→09:00)
[2019-03-15] MEDS ORDERED: ZOLPIDEM 5 MG TAB PO PRN (02:00)
[2019-03-15 02:15] VITALS: BP 108/52; PULSE 60; RESP 18
[2019-03-15] MEDS ORDERED: NICOTINE (21 MG/24 HR) PATCH TRANSDERM SCH ×2 (03:14→09:00)
[2019-03-15] MEDS ORDERED: NICOTINE (21 MG/24 HR) PATCH TRANSDERM ONE (03:30)
[2019-03-15] MEDS ORDERED: MESALAMINE (EC) 400 MG CAP PO SCH (06:00)
[2019-03-15] MEDS ORDERED: PANTOPRAZOLE 40 MG INJ IV SCH (06:00)
[2019-03-15] MEDS ORDERED: SERTRALINE 100 MG TAB PO SCH (09:00)
[2019-03-15] MEDS ORDERED: GABAPENTIN 400 MG CAP PO SCH (09:00)
== END 2019-03-15 04:00 | disposition left against medical advice (07) | DRG 378 ==
LOC: E/R 17:31 → PP2 21:07 → CANBEDREQ 22:11
PROVIDERS: ADMIT Internal Medicine; ATTEND Internal Medicine
DX: K62.5 Hemorrhage of anus and rectum (principal); K51.90 Ulcerative colitis, unspecified, without complications
CPT/HCPCS: 80053; 81003; 83690; 84703; 85025; 85610; 85730; 87081; 96374; 96375; 96376; J1100; J1170; J2405; J7030; J7042

== ENCOUNTER 2019-04-09 19:29 | Emergency (ER) | payer OTHER ==
[~2019-04-09] VITALS: Ht 165.1 cm; Wt 106.0 kg
[~2019-04-09 19:29] MED LIST changes: +CLON0.5T PO; +SERT100T PO; +ZOLP10TA PO
[2019-04-09 19:54] VITALS: Ht 165.1 cm; Wt 106.0 kg
--- NOTE | 2019-04-09 22:48 | ERD ---
ER Documentation Chief Complaint Chief Complaint BLOODY DIARRHEA SINCE THIS MORNING, HX ULCERATIVE COLITIS. HPI 39-year-old female with a history of ulcerative colitis presenting to the ER complaining of bloody diarrhea that started this morning. For the past 5 days, she has been having diarrhea that she is unable to quantify which was nonbloody initially. She had associated lower abdominal intermittent cramping pain. However today her left lower quadrant pain has worsened and now she has blood in her stools. She does have a GI doctor in [place] but she does not know his name. She states that her GI doctor recently changed her medications from mesalamine to another medication, which was on March 26. A few days after that is when her symptoms started. She feels that this medication is not helping her. She denies any fevers or chills. No nausea or vomiting. She complains of 9 out of 10 left lower quadrant abdominal pain that radiates to her back and her rectum. The pain is constant, throbbing, with no alleviating factors. She has tried NSAIDs at home without relief. Exacerbated by movement. ROS All systems reviewed and are negative except as per history of present illness. Medications Home Meds Active Scripts Prednisone* (Prednisone*) 20 Mg Tab, 60 MG PO DAILY for 5 Days, TAB Prov:LUZ ELENA DURAN MD 04/10/19 Naloxone HCl nasal spray (Narcan 4 mg/0.1 mL nasal) 4 Mg [place], 4 MG NS .Q2-3MIN for OPIOID OVERDOSE, #2 SPRAY 0 Refills [place] 0.1 mL into one nostril. Repeat with second device into other nostril after 2-3 minutes if no or minimal response Prov:LUZ ELENA DURAN MD 04/10/19 Oxycodone Hcl* (Oxycontin*) 20 Mg Tab.er.12h, 20 MG PO Q12 for 2 Days, TAB Prov:LUZ ELENA DURAN MD 04/10/19 Levofloxacin* (Levaquin*) 750 Mg Tablet, 750 MG PO DAILY for 7 Days, TAB Prov:OKSANA EVANS. DO 02/06/19 Prednisone* (Prednisone*) 20 Mg Tab, 60 MG PO DAILY for 5 Days, TAB Prov:THOM EVANSSTDAVID Petersen DO 02/06/19 Hydrocodone/Acetaminophen ([place] 10-325 Tablet) 1 Each Tablet, 1 TAB PO Q6H PRN for PAIN, #7 TAB Prov:OKSANA EVANS YeimyBibi KOHLER 02/06/19 Reported Medications Zolpidem Tartrate* (Ambien*) 10 Mg Tablet, 10 MG PO QHS PRN for INSOMNIA, TAB 03/14/19 Clonazepam (Klonopin) 0.5 Mg Tablet, 2 MG PO TID, TAB 03/14/19 Sertraline Hcl* (Zoloft*) 100 Mg Tablet, 100 MG PO DAILY, #30 TAB 03/14/19 Mesalamine (Mesalamine) 1.2 Gm Tablet.dr, 2.4 GM PO DAILY 02/06/19 Biotin (Biotin) 5,000 Mcg Tab.rapdis, 5000 MCG PO DAILY 01/20/19 Vit #108/Iron/Fa ( ONE TABLET) 1 Each Tablet, 1 EACH PO DAILY, TAB 01/20/19 Zolpidem Tartrate* (Zolpidem Tartrate*) 10 Mg Tablet, 10 MG PO QHS for 30 Days, #30 01/20/19 Carisoprodol* (Carisoprodol*) 350 Mg Tablet, 350 MG PO BID for 30 Days, #60 01/20/19 Clonazepam* (Clonazepam*) 1 Mg Tablet, 1 MG PO TID for 30 Days, #90 01/20/19 Sertraline Hcl* (Sertraline Hcl*) 100 Mg Tablet, 100 MG PO DAILY for 30 Days, #30 01/20/19 Gabapentin* (Gabapentin*) 800 Mg Tablet, 800 MG PO TID for 30 Days, #90 01/20/19 Allergies Allergies: Coded Allergies: morphine (Unverified Allergy, Severe, ITCHING , 04/10/19) PER PT "I'M ALLERGIC TO MORPHINE I GET ITCHY BUT CAN I GET BENADRYL TO COUNTER ACT THE ITCHING" IF I GET BENADRYL THEN I CAN HAVE IT" PMhx/Soc History of Surgery: Yes (Gall bladder removal, Lap band, 2 colostomy bags, 2 hernia repair '13,'16) Anesthesia Reaction: No Hx Neurological Disorder: No Hx Respiratory Disorders: No Hx Cardiac Disorders: No Hx Psychiatric Problems: Yes (Anxiety) Hx Miscellaneous Medical Probl: Yes (Ulcertive colitis, chronic pain) Hx Alcohol Use: No Hx Substance Use: No Hx Tobacco Use: No (1 pack/day) Smoking Status: Never smoker FmHx Family History: No diabetes Physical Exam Vitals Vital Signs Date Temp Pulse Resp B/P (MAP) Pulse Ox O2 O2 Flow FiO2 Time Delivery Rate 04/10/19 63 18 111/68 100 Room Air 00:56 (82) 04/09/19 98.0 79 20 145/73 98 19:54 (97) Physical Exam Const: No acute distress, well-appearing, laying comfortably in bed Head: Atraumatic Eyes: Normal Conjunctiva ENT: Normal External Ears, Nose and Mouth. Neck: Full range of motion. No meningismus. Resp: Clear to auscultation bilaterally Cardio: Regular rate and rhythm, no murmurs Abd: Soft, tender to palpation in the left lower quadrant with guarding no rebound, non distended. Hyperactive bowel sounds Rectal: No external hemorrhoids or anal fissure seen. No active bleeding. Minimal amount of stool in the rectal vault with faint blood in stool. Guaiac positive Skin: No petechiae or rashes Back: No midline or flank tenderness Ext: No cyanosis, or edema Neur: Awake and alert Psych: Normal Mood and Affect Result Diagram: 04/09/19 2351 04/09/19 2351 Results 24 hrs Laboratory Tests Test 04/09/19 23:15 04/09/19 23:51 04/09/19 23:58 04/10/19 00:12 Urine Color YELLOW Urine Clarity CLOUDY Urine pH 7.0 Urine Specific 1.017 [place] Urine Ketones NEGATIVE mg/dL Urine Nitrite NEGATIVE mg/dL Urine Bilirubin NEGATIVE mg/dL Urine NEGATIVE mg/dL Urobilinogen Urine Leukocyte NEGATIVE Kirk/ul Esterase Urine Microscopic 4 /HPF RBC Urine Microscopic 1 /HPF WBC Urine Squamous MANY /HPF Epithelial Cells Urine Amorphous FEW /HPF Crystals Urine Mucus FEW /HPF Urine Hemoglobin NEGATIVE mg/dL Urine Glucose NEGATIVE mg/dL Urine Total NEGATIVE mg/dl Protein White Blood Count 6.4 10^3/ul Red Blood Count 5.06 10^6/ul Hemoglobin 12.1 g/dl Hematocrit 39.8 % Mean Corpuscular 78.7 fl Volume Mean Corpuscular 23.9 pg Hemoglobin Mean Corpuscular 30.4 g/dl Hemoglobin Concen t Red Cell 22.3 % Distribution Width Platelet Count 374 10^3/UL Mean Platelet 10.5 fl Volume Immature 0.300 % Granulocytes % Neutrophils % 68.0 % Lymphocytes % 21.8 % Monocytes % 7.9 % Eosinophils % 1.4 % Basophils % 0.6 % Nucleated Red 0.0 /100WBC Blood Cells % Immature 0.020 10^3/ul Granulocytes # Neutrophils # 4.4 10^3/ul Lymphocytes # 1.4 10^3/ul Monocytes # 0.5 10^3/ul Eosinophils # 0.1 10^3/ul Basophils # 0.0 10^3/ul Nucleated Red 0.0 10^3/ul Blood Cells # Prothrombin Time 11.8 Sec Prothrombin Time 0.9 Ratio INR International 0.86 Normalized Ratio Activated 31.7 Sec Partial Thrombopl ast Time Sodium Level 142 mmol/L Potassium Level 4.1 mmol/L Chloride Level 109 mmol/L Carbon Dioxide 26 mmol/L Level Anion Gap 7 Blood Urea 6 mg/dl Nitrogen Creatinine 0.54 mg/dl Est Glomerular > 60 mL/min Filtrat Rate mL/min Glucose Level 90 mg/dl Calcium Level 9.4 mg/dl Total Bilirubin 0.1 mg/dl Direct Bilirubin 0.00 mg/dl Indirect 0.1 mg/dl Bilirubin Aspartate Amino 25 IU/L Transf (AST/SGOT) Alanine 33 IU/L Aminotransferase (ALT/SGPT) Alkaline 229 IU/L Phosphatase Total Protein 7.0 g/dl Albumin 3.9 g/dl Globulin 3.10 g/dl Albumin/Globulin 1.25 Ratio Bedside Urine pH 7.5 (LAB) Bedside Urine Negative Protein (LAB) Bedside Urine Negative Glucose (UA) Bedside Urine Negative Ketones (LAB) Bedside Urine Negative Blood Bedside Urine Negative Nitrite (LAB) Bedside Urine Negative Leukocyte Esteras e (L POC Beta HCG, NEGATIVE Qualitative Stool Occult POSITIVE Blood Current Medications Medications Dose Sig/Ajit Start Time Status Last (Trade) Ordered Route PRN Stop Time Admin Dose Reason Admin Sodium 1,000 ml @ Q1H STAT 04/09/19 DC 04/09/19 Chloride 1,000 mls/hr IV 23:08 22:55 04/10/19 00:07 0.5 mg ONCE STAT 04/09/19 DC 04/09/19 Hydromorphone IV 23:08 22:55 HCl 04/09/19 23:09 (Dilaudid) 60 mg ONCE ONCE 04/10/19 DC 04/10/19 Methylprednis IV 01:00 00:57 olone Sodium 04/10/19 01:01 Succinate (Solu-Medrol) Procedures/MDM EMERGENT LABS AND DIAGNOSTIC STUDIES: Lab Results above were reviewed and interpreted by me. CBC: no anemia or evidence of infection CMP: No evidence of clinically significant electrolyte abnormality, acidosis, renal failure, hypoglycemia, liver disease, or biliary obstruction negative Coags normal without evidence of coagulopathy Initial Nursing notes reviewed. Previous Medical Records requested via the Electronic Health Record. EMERGENCY DEPARTMENT COURSE / MEDICAL DECISION MAKING: Patient is presenting with left lower quadrant abdominal pain and bloody diarrhea, consistent with her history of ulcerative colitis, now with possibly flare. Vitals are unremarkable and she has no signs of sepsis. I do not suspect acute surgical abdomen. I do not suspect infectious colitis. Her labs are unremarkable, hemoglobin is within normal limits. No signs of severe bleeding on exam. Patient was given Dilaudid for her pain with some relief. I did check her cures report and she gets monthly prescriptions for oxycodone for her chronic pain. Patient did not mention this to me. I gave her a dose of her home oxycodone here. She was also given a dose of steroids. Patient will be given 2 days worth of oxycodone and a prescription for prednisone for 5 days. She was instructed to follow-up with her pain management doctor for further refills on her pain medications and also advised to follow-up with her GI doctor tomorrow since she may need an extended course of steroids. At this time she does not require admission. Return precautions given. Patient discharged in a stable condition. Patient's blood pressure was elevated (>120/80) but appears stable without evidence of hypertensive emergency or urgency. The patient was counseled about the risks of hypertension and urged to pursue outpatient monitoring and therapy within a week with their primary care physician. Departure Diagnosis: Primary Impression: Bloody diarrhea Additional Impression: Ulcerative colitis, left sided Digestive disease complication type: with rectal bleeding Qualified Codes: K51.511 - Left sided colitis with rectal bleeding Condition: Stable EKMEKJIAN,NELLIE R. MD April 09, 2019 22:48
[2019-04-09] MEDS ORDERED: HYDROmorphONE 1 MG/ML SYG IV STA (23:08)
[2019-04-09] MEDS ORDERED: SOD CHLORIDE 0.9% 1,000 ML IV STA (23:08)
[2019-04-10] MEDS ORDERED: NALO4SPR NS (00:37)
[2019-04-10] MEDS ORDERED: OXYC20TA41 PO (00:37)
[2019-04-10] MEDS ORDERED: PRED20TA PO (00:38)
[2019-04-10] MEDS ORDERED: METHYLPREDNISOLONE 125 MG INJ IV ONE (01:00)
[2019-04-10 01:17] VITALS: BP 126/76; PULSE 84; RESP 18
== END 2019-04-10 01:18 | disposition home or self-care (01) ==
LOC: E/R 19:29
DX: K51.511 Left sided colitis with rectal bleeding (principal); Z87.891 Personal history of nicotine dependence
CPT/HCPCS: 36415; 80053; 81001; 81003; 81025; 82270; 85025; 85610; 85730; 96374; 96375; J1170; J2930; J7030; Z7502